=== PATIENT | female | born 1995 | race African-American/Black ===

== ENCOUNTER 2020-11-08 01:31 | Emergency (ER) | payer OTHER, SELFPAY ==
[2020-11-08 01:35] VITALS: BP 115/73; PULSE 86; RESP 16; TEMP 36.9; O2SAT 98
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
[2020-11-08 02:31] VITALS: BP 134/84; PULSE 80; RESP 16; TEMP 36.7; O2SAT 99
[2020-11-08] MEDS: ACETAMINOPHEN 500 MG TABLET 1000 MG PO (02:31)
== END 2020-11-08 02:32 | disposition home or self-care (01) ==
PROVIDERS: Emergency Provider General Practice; PCP Nurse Practitioner Family
DX: O99.891 Other specified diseases and conditions complicating pregnancy (principal); M79.604 Pain in right leg; Z3A.00 Weeks of gestation of pregnancy not specified
CPT/HCPCS: 99282; A9270

== ENCOUNTER 2020-11-11 23:43 | Emergency (ER) | payer OTHER, SELFPAY ==
--- NOTE | ~2020-11-11 | XR_ITS ---
XR chest 1V portable DATE: 11/12/2020 02:36 INDICATION: Cough for 3 days TECHNIQUE: Portable upright AP view on 11/12/2020 at 0234 hours COMPARISON: 12/02/2018 2 view chest FINDINGS: Mild upper left thoracic levoscoliosis is again noted. Normal heart size. No hilar or mediastinal enlargement. No pulmonary infiltrate or consolidation, pleural effusion or pulmonary vascular congestion or pneumo thorax is detected. IMPRESSION: No active cardiopulmonary disease Reviewed, dictated and finalized at location A.
[2020-11-11 23:50] VITALS: BP 106/68; PULSE 90; RESP 14; TEMP 36.9; O2SAT 100
[2020-11-12 02:03] VITALS: BP 105/70; PULSE 93; RESP 18; O2SAT 100
--- NOTE | 2020-11-12 02:46 | ED.GENADULT ---
HPI - General Adult General Chief complaint: Upper Respiratory Infection Stated complaint: I think I have pneumonia Time Seen by Provider: 11/12/20 02:14 History of Present Illness HPI narrative: Patient is a 5-year-old female presents emerged part with chief complaint of cough. Patient reports that her child is diagnosed with pneumonia and that she has been coughing for the last 7 days. The patient reports that she is 33 weeks and reports that she thinks she may have pneumonia or bronchitis. The patient reports has had some subjective fevers reports that she has not been tested for Covid has not previously had Covid nor has she been vaccinated. Related Data Allergies Allergy/AdvReac Type Severity Reaction Status Date / Time adhesive tape Allergy Mild RASH Verified 11/12/20 02:06 Review of Systems Review of Systems: Narrative: A 10 system review of systems was completed on the patient and is negative except for what is stated in the HPI. Nursing and ancillary documentation was reviewed. [facility] Past Medical History Medical History History of broken leg Social History Social History Smoking status: Never smoker Alcohol intake: never Substance use: never Exam Narrative: Exam Narrative: GENERAL: Well-appearing, well-nourished, and in no acute distress. HEAD: Normocephalic, atraumatic. EYES: PERRLA and EOMI. ENT: Nares clear, no rhinorrhea or epistaxis. Mucous membranes moist. NECK: Supple. CHEST: Clear to auscultation. No respiratory distress. HEART: Regular rate and rhythm. No murmur heard. Normal peripheral pulses. ABDOMEN: Soft, nontender, nondistended, normal active bowel sounds. EXTREMITIES: Normal range of motion. No edema. SKIN: Warm, dry, no rash. NEURO: No focal deficits. Alert and oriented x3. PSYCH: Normal mood and affect. Course Course Emergency Course: Chest x-ray shows no evidence of pneumonia Vital Signs Vital signs: Vital Signs Temperature 36.9 C 11/11/20 23:50 Pulse Rate 90 11/11/20 23:50 Respiratory Rate 14 11/11/20 23:50 Blood Pressure 106/68 11/11/20 23:50 Pulse Oximetry 100 11/11/20 23:50 Temperature 36.9 C 11/11/20 23:50 Pulse Rate 93 11/12/20 02:03 Respiratory Rate 18 11/12/20 02:03 Blood Pressure 105/70 11/12/20 02:03 Pulse Oximetry 100 11/12/20 02:03 Medical Decision Making Vital Signs Vital Signs: Vital Signs Temperature 36.9 C 11/11/20 23:50 Pulse Rate 90 11/11/20 23:50 Respiratory Rate 14 11/11/20 23:50 Blood Pressure 106/68 11/11/20 23:50 Pulse Oximetry 100 11/11/20 23:50 Temperature 36.9 C 11/11/20 23:50 Pulse Rate 93 11/12/20 02:03 Respiratory Rate 18 11/12/20 02:03 Blood Pressure 105/70 11/12/20 02:03 Pulse Oximetry 100 11/12/20 02:03 Discharge Plan Discharge Clinical Impression: Bronchitis Patient Disposition: Home, Self-Care Condition: Stable Instructions: Antibiotic Form, Acute Bronchitis (ED) Prescriptions: New azithromycin [Zithromax Z-Aleksandr] 250 mg tablet See Rx Instructions .ROUTE .COMPLEX Qty: 6 RF: 0 Follow-up/Referrals: Jonatan,FLAVIO Arroyo [Primary Care Provider] - Time of Disposition: 02:47
[2020-11-12 03:12] VITALS: BP 103/71; PULSE 91; RESP 18; O2SAT 100
[2020-11-12 16:16] LABS: SARS-CoV-2 RNA PCR Negative
== END 2020-11-12 03:02 | disposition home or self-care (01) ==
PROVIDERS: Emergency Provider Emergency Medicine; PCP Nurse Practitioner Family
DX: J40 Bronchitis, not specified as acute or chronic (principal); Z20.828 Contact with and (suspected) exposure to other viral communicable diseases
CPT/HCPCS: 71045; 99283; C9803; U0003; U0005

== ENCOUNTER 2020-12-24 05:30 | Observation (INO) | payer OTHER, SELFPAY ==
--- NOTE | 2020-12-24 05:30 | OBADM ---
This patient, Maggi Hernandez, admitted to the OB room Labor/Delivery/Recovery 107 for observation. Patient/family oriented to hospital policies and general routines including ID bracelet, bed and alarms, visiting hours, pain management, procedures, bathroom and other care routines, personal items, smoking policy, room service/diet, and visiting hours. Patient/Family are encouraged to report perceived risks to care and to ask questions if they do not understand what they are told or what they should do.
--- NOTE | 2020-12-27 07:10 | PM.OBTRLD ---
OB - Triage/Final Diagnosis Visit Information Date of evaluation: 12/26/20 Reason for evaluation: threatened labor Comments/Additional reasons for admission: I have assessed the risk for this patient, Maggi Hernandez, and determined that she would benefit from observation care.
== END 2020-12-24 09:15 | disposition home or self-care (01) ==
PROVIDERS: Admitting Provider Obstetrics & Gynecology; PCP Nurse Practitioner Family; Visit Provider Obstetrics & Gynecology
DX: O47.9 False labor, unspecified (principal); Z3A.00 Weeks of gestation of pregnancy not specified
CPT/HCPCS: G0378; G0379

== ENCOUNTER 2020-12-26 20:39 | Observation (INO) | payer OTHER, SELFPAY ==
[2020-12-26 21:38] VITALS: BMI 29.9
--- NOTE | 2020-12-26 21:39 | OBADM ---
This patient, Maggi Hernandez, admitted to the OB room Labor/Delivery/Recovery 105 for observation. Patient/family oriented to hospital policies and general routines including ID bracelet, bed and alarms, visiting hours, pain management, procedures, bathroom and other care routines, personal items, smoking policy, room service/diet, and visiting hours. Patient/Family are encouraged to report perceived risks to care and to ask questions if they do not understand what they are told or what they should do.
--- NOTE | 2021-01-16 20:14 | PM.OBTRLD ---
OB - Triage/Final Diagnosis Visit Information Comments/Additional reasons for admission: I have assessed the risk for this patient, Maggi Hernandez, and determined that she would benefit from observation care. Final Diagnosis (1) Vaginal discharge during in third trimester: Code(s): O26.893 - Other specified related conditions, third trimester; N89.8 - Other specified noninflammatory disorders of vagina Status: Acute
== END 2020-12-26 21:54 | disposition home or self-care (01) ==
PROVIDERS: Admitting Provider Obstetrics & Gynecology; PCP Nurse Practitioner Family; Visit Provider Obstetrics & Gynecology
DX: O26.893 Other specified pregnancy related conditions, third trimester (principal); N89.8 Other specified noninflammatory disorders of vagina; Z3A.38 38 weeks gestation of pregnancy
CPT/HCPCS: 84112; G0378; G0379

== ENCOUNTER 2020-12-28 06:55 | Inpatient (IN) | payer OTHER, SELFPAY ==
[2020-12-28] VITALS (47 sets, daily range): BP systolic 75–151; BP diastolic 39–135; PULSE 32–188; RESP 16; TEMP 36.4–36.7; O2SAT 77–100
--- NOTE | 2020-12-28 07:19 | LDADM ---
This patient, Maggi Hernandez, was admitted to Labor/Delivery/Recovery 106 on 12/28/20 at 06:55. Plans for labor, pain management and were discussed with patient. Patient/family oriented to hospital policies and general routines including ID bracelet, bed and alarms, visiting hours, pain management, procedures, bathroom and other care routines, personal items, smoking policy, room service/diet and guest tray routines, security routines, and visiting hours. Patient/Family are encouraged to report perceived risks to care and to ask questions if they do not understand what they are told or what they should do. See OBIX for further documentation.
[2020-12-28] MEDS: LACTATED RINGERS 1,000 ML 125 ML IV CONT (07:30)
[2020-12-28 07:35] LABS: Basophils Percent Auto 0.4 % (0.2-1.2); Eosinophils Absolute Auto 0.1 K/mm3 (0-0.3); Eosinophils Percent Auto 0.8 % (0-4.4); Hematocrit 32.7 % (37.0-47.0); Hemoglobin 10.5 g/dL (12.0-15.0); Lymphocytes Absolute Auto 2.16 K/mm3 (0.9-3.2); Lymphocytes Percent Auto 21.8 % (18.3-44.2); Mean Corpuscular HGB Conc 32.1 g/dl (32-36); Mean Corpuscular Hemoglobin 30.3 pg (26-34); Mean Corpuscular Volume 94.2 fl (80-100); Mean Platelet Volume 10.2 fl (7.4-10.4); Monocytes Absolute Auto 0.5 K/mm3 (0.1-0.6); Monocytes Percent Auto 5.4 % (2.6-8.5); Neutrophils Percent Auto 70.6 % (45.5-73.1); Platelet Count Result 231 k/mm3 (150-375); Red Blood Count 3.47 M/mm3 (4.2-5.4); Red Cell Distribution Width 12.6 % (11.5-14.5); White Blood Count 9.9 K/mm3 (4.5-10.0)
[2020-12-28] MEDS: ONDANSETRON INJ 4 MG/2 ML VIAL IV PUSH (12:05)
--- NOTE | 2020-12-28 15:03 | WPDOBADMIT ---
Obstetrics - Admit Note Admission Note: record reviewed. No pertinent additions to the history and/or any subsequent changes in the physical findings that are not consistent with the expected course of the were found. admitted to ld for labor, SROM large amount of clear odorless fluid, SVE 8-9/0-/-1 Additions to the history and/or subsequent changes in the physical findings follow. None.
[2020-12-28] MEDS: OXYTOCIN 30 UNITS/NS 500 ML 30 UNITS/500 ML BAG 999 UNITS IV CONT (15:45)
--- NOTE | 2020-12-28 15:52 | PM.OBPRVD ---
OB - Delivery Note Procedure Delivery date: 12/28/20 Procedure: vaginal delivery Intrapartal events: None Delivery augmentation: rupture of membranes Delivery monitor: external FHT and external uterine Route of delivery: Laceration Description: None Specimen: No Quantitative Blood Loss (ml): 65 Anesthesia type: Epidural Disposition: floor Baby Date of : 12/28/20 Time of : 15:42 Weeks of gestation at delivery: 38 gender: Male Weight (pounds): 7 Weight (ounces): 2 presentation: vertex position: Left Occiput Transverse Placenta delivery description: Spontaneous cord vessel description: 3 Vessels, Clamped/Cut and Delayed Cord Clamping score one minute: 9 score five minutes: 9 Narrative: mother and baby skin to skin i n stable condition
[2020-12-28] MEDS: OXYTOCIN 30 UNITS/NS 500 ML 30 UNITS/500 ML BAG 125 UNITS IV CONT (16:06)
--- NOTE | 2020-12-28 18:13 | PC.NURSE ---
Patient transferred to post room #283 via wheel chair. Support person present. Oriented to unit, room, information board, rooming in, admission packet and security measures. Patient verbalizes understanding.
[2020-12-28] MEDS: IBUPROFEN 600 MG TABLET PO (18:40)
[2020-12-28] MEDS: WITCH HAZEL 40 PADS 1 PAD TOPICAL (22:48)
[2020-12-28] MEDS: BENZOCAINE 20% AER SPR (*SP) 56 GM CAN 1 SPRAY TOPICAL (22:48)
[2020-12-29 04:00] VITALS: BP 106/71; PULSE 77; RESP 16; TEMP 36.2
[2020-12-29 05:08] LABS: Hematocrit 32.7 % (37.0-47.0); Hemoglobin 10.3 g/dL (12.0-15.0)
--- NOTE | 2020-12-29 07:00 | PC.NURSE ---
PT introductions made and plan of care discussed per post , pain management, breast feeding, daily care activities. PT received instructions given per shift via one to one discussion, mom baby care guide and demonstration. PT and significant other both received instructions and no barriers to learning identified at this time.
[2020-12-29] MEDS: MULTIVIT/MIN/PREN/FOL AC/IRON TABLET 1 TAB PO (08:21)
[2020-12-29] MEDS: ACETAMINOPHEN 325 MG TABLET 650 MG PO ×2 (08:21→16:02)
[2020-12-29] MEDS: DOCUSATE SODIUM 100 MG CAPSULE PO ×2 (08:21→16:04)
[2020-12-29] MEDS: IBUPROFEN 600 MG TABLET PO ×2 (08:22→16:03)
[2020-12-29] MEDS: LANOLIN (LANSINOH) 7.5 GM CREAM 1 APPLIC TOPICAL (08:23)
[2020-12-29 09:30] VITALS: BP 104/58; PULSE 83; RESP 18; TEMP 36.4; O2SAT 100
--- NOTE | 2020-12-29 18:26 | PM.OBPNVD ---
OB - PN: Subj Subjective Date/time seen: 12/29/20 18:26 Patient comments: no complaints, pain well controlled, incisional pain, tolerating diet and flatus present OB - PN: Obj Data Labs CBC & Chem 7: 12/29/20 03:53 Labs: Laboratory Results - last 24 hr 12/29/20 03:53 Hgb 10.3 L Hct 32.7 L OB - PN A/P Plan day: 1 Plan: routine care Comments: No problems, routine care Time Spent With Patient Time: Total time spent is greater than 50% in coordination of care (as documented) at patient's floor/unit and/or counseling patient: Exam Const: General: comfortable, no acute distress and alert Resp: Effort & Inspection: normal respiratory effort Auscultation: no crackles, no rales and no rhonchi Cardio: Rate: regular rate Heart sounds: no click, no murmurs and no rubs GI: Inspection: non-distended GI Palp: No Tenderness to palpation present (GI) Auscultation: normal bowel sounds Other: Incision - CDI Extrem: General: normal to inspection, no pedal edema and no calf tenderness
[2020-12-29 19:30] VITALS: BP 115/65; PULSE 76; RESP 16; TEMP 36.9; O2SAT 100
[2020-12-30] MEDS: IBUPROFEN 600 MG TABLET PO ×2 (03:16→08:52)
[2020-12-30] MEDS: ACETAMINOPHEN 325 MG TABLET 650 MG PO (03:17)
--- NOTE | 2020-12-30 07:55 | PM.OBPNVD ---
OB - PN: Subj Subjective Date/time seen: 12/30/20 07:55 Patient comments: no complaints baby status: doing well OB - PN: Obj Data Labs CBC & Chem 7: 12/29/20 03:53 OB - PN A/P Plan day: 2 Plan: routine care and discharge home (F/U in 4 weeks) Time Spent With Patient Time: Total time spent is greater than 50% in coordination of care (as documented) at patient's floor/unit and/or counseling patient: Time with patient: less than 15 minutes Review of Systems Review of Systems: All systems reviewed & are unremarkable except as noted in HPI and below Exam Narrative: Fundus firm and vaginal flow controlled. No lower ext redness, warmth, or edema. Negative homans. Const: General: comfortable Chest: Breast/axilla inspection: normal inspection of the breasts Resp: Effort & Inspection: normal respiratory effort Cardio: Rate: regular rate GI: GI Palp: Yes Soft to palpation Psych: Appearance: grossly normal Affect: normal affect Attitude: cooperative Thought content: Yes Normal thought content present Judgement: Good judgement present (Psych)
--- NOTE | 2020-12-30 07:56 | P.DS_ITS ---
DS: Admitting Diagnosis Admitting Diagnosis Labor OB - DS: Summary OB Procedures : None OB Procedures Intrapartum: Spontaneous Vag Delivery OB Procedures: : None Time Spent with Patient Time attestation: Total time spent providing and/or coordinating discharge services: Discharge Plan Discharge Attending physician on discharge: Rosa Taylor Discharging Clinician: Debra Sotelo Patient Disposition: Home, Self-Care Activity: pelvic rest Diet: as tolerated Patient Instructions: Antibiotic Form Stand Alone Forms: General Discharge Information Follow-up/Referrals: Rosa Taylor CNM [Certified Nurse Continuous Dryout Operator Helper] - Discharge Medications: Continued PNV cmb#95-ferrous fumarate-FA [] 28 mg iron- 800 mcg Tablet 1 tablet PO DAILY RF: 0 Date of admission: 12/28/20 06:55 Primary Care Provider: UNKNOWN,DOCTOR Admitting Provider: Rajiv Huynh Attending physician on admission: Rajiv Huynh Condition: Stable
[2020-12-30 08:00] VITALS: BP 112/75; PULSE 68; RESP 16; TEMP 36.3; O2SAT 98
[2020-12-30] MEDS: MULTIVIT/MIN/PREN/FOL AC/IRON TABLET 1 TAB PO (08:52)
[2020-12-31 10:05] VITALS: BP 118/72; PULSE 71; RESP 16; TEMP 37.2
[2021-01-02 09:19] LABS: Rapid Plasma Reagin Non-Reactive (NonReactive)
== END 2020-12-30 12:10 | disposition home or self-care (01) | DRG 560 ==
LOC: ANHLDR 07:12 → ANHOB2 18:24
PROVIDERS: Advanced Practice Midwife; Admitting Provider Obstetrics & Gynecology; Visit Provider Obstetrics & Gynecology
DX: O80 Encounter for full-term uncomplicated delivery (principal); Z3A.38 38 weeks gestation of pregnancy; Z37.0 Single live birth
CPT/HCPCS: 36415; 85014; 85018; 85025; 86592; 86850; 86900; 86901; A9270; J2405; J2590; J2795; J7120

== ENCOUNTER 2022-01-26 00:47 | Emergency (ER) | payer OTHER, SELFPAY ==
--- NOTE | ~2022-01-26 | XR_ITS ---
EXAMINATION: XR femur RT min 2V DATE: 01/26/2022 01:48 INDICATION: Right hip pain. Right lower limb pain. TECHNIQUE: 2 views of the right femur on 4 radiographs were obtained. COMPARISON: None. FINDINGS: There is an old healed fracture of right femoral diaphysis. There is internal fixation with antegrade intramedullary shane, 3 femoral head and neck screws, and 2 distal interlocking screws. No a cute fracture. There is mild right hip osteoarthritis. Right knee joint is normal. No knee joint effu gonzalo. There is an intrauterine device in expected position. IMPRESSION: 1. Mild right hip osteoarthritis. Reviewed, dictated and finalized at location A.
--- NOTE | ~2022-01-26 | XR_ITS ---
EXAMINATION: XR hip RT 1V w AP pelvis DATE: 01/26/2022 01:48 INDICATION: Right hip pain. TECHNIQUE: An anteroposterior view of the pelvis and 2 views of right hip were obtained. COMPARISON: None. FINDINGS: There is internal fixation of proximal right femur with antegrade intramedullary shane and 3 femoral head and neck screws. There is mild right hip osteoarthritis. There is an intrauterine device in expected position. IMPRESSION: 1. Mild right hip osteoarthritis. Reviewed, dictated and finalized at location A.
[2022-01-26 00:59] VITALS: BP 106/69; PULSE 82; RESP 16; TEMP 36.3; O2SAT 100
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
[2022-01-26] MEDS: IBUPROFEN 400 MG TABLET 800 MG PO (02:08)
[2022-01-26 02:27] VITALS: BP 118/68; PULSE 74; RESP 16; TEMP 36.8; O2SAT 100
== END 2022-01-26 02:29 | disposition home or self-care (01) ==
PROVIDERS: Emergency Provider Emergency Medicine
DX: M16.11 Unilateral primary osteoarthritis, right hip (principal)
CPT/HCPCS: 73501; 73552; 99284; A9270

== ENCOUNTER 2022-07-22 11:03 | Emergency (ER) | payer OTHER, SELFPAY ==
--- NOTE | 2022-07-22 11:09 | ED.EYEPROB ---
HPI - Eye Problem General Chief complaint: Eye Problems Stated complaint: Eyes Irritation Time Seen by Provider: 07/22/22 11:10 Source: patient Mode of arrival: ambulatory Limitations: no limitations History of Present Illness HPI Narrative: Maggi is a 27-year-old female patient presenting to the clinic today with complaints of eye irritation times 1-2 days. She reports the left eye is painful and she is concerned that she may have scratched her has something in the left eye. States that she is having light sensitivity in the left eye. Related Data Home Medications Medication Instructions Recorded Confirmed metronidazole 500 mg tablet 500 mg DIRECTED 07/22/22 07/22/22 Allergies Allergy/AdvReac Type Severity Reaction Status Date / Time adhesive tape Allergy Mild RASH Verified 11/12/20 02:06 Review of Systems Review of Systems: Pertinent positives per HPI. Patient denies any fever, chills, rash, headache, visual changes, dizziness, cough, runny nose, sore throat, shortness of breath, chest pain, palpitations, nausea, vomiting, diarrhea, constipation, abdominal pain, or any urinary issues. PMFSH Past Medical History Medical History History of broken leg Family History Family History Sibling Asthma Daughter Eczema Carrier of galactosemia Social History Social History Smoking status: Never smoker Alcohol intake: never Substance use: never Gender identity (if verbalized by the patient): Female Spiritual care concerns: No Comments At the time of my signature, I reviewed and agree with the nursing past medical, surgical, social, and family history. There is no relevant family history pertinent to the patient complaint. Exam Narrative: General: Well-developed, well nourished, in no apparent distress Head: Normocephalic, atraumatic Eyes: Pupils equally round and reactive to light bilaterally, EOM intact, sclera and conjunctive injected bilaterally, yellow mucopurulent discharge, wood lamp shows a corneal abrasion over the left visual field lids normal Ears: TMs intact and clear, ear canals clear, no drainage, grossly hearing normal. Nose: Nares patent, no discharge, no inflammation, no sinus tenderness. Mouth: Oropharynx without lesions or masses, good dentition, MMM. Neck: Supple, trachea midline, no enlargement of anterior or posterior cervical nodes, no thyroid masses or goiter palpable. Cardio: Regular rate and rhythm, s1 and s2 normal, no murmur appreciated. Resp: Clear to auscultation bilaterally anteriorly and posteriorly, no rhonchi, rales, wheezing or rubs Course Course Emergency Course: Portions of this record may have been created with voice recognition software. Level of Care: Express Care Visit Vital Signs Vital signs: Vital Signs Temperature 37.2 C 07/22/22 11:14 Pulse Rate 77 07/22/22 11:14 Respiratory Rate 16 07/22/22 11:14 Blood Pressure 107/64 07/22/22 11:14 Pulse Oximetry 99 07/22/22 11:14 Oxygen Delivery Room Air 07/22/22 11:14 Temperature 37.2 C 07/22/22 11:14 Pulse Rate 77 07/22/22 11:14 Respiratory Rate 16 07/22/22 11:14 Blood Pressure 107/64 07/22/22 11:14 Pulse Oximetry 99 07/22/22 11:14 Oxygen Delivery Room Air 07/22/22 11:14 Vital signs reviewed MDM - Eye Problem MDM Narrative Medical decision making narrative: At the time of visit patient is resting comfortably on the exam table. Instill ofloxacin eyedrops as prescribed. E-Mycin ointment ordered for the left eye at nighttime. Supportive measures were discussed with the patient she voiced understanding discharge instructions agrees to treatment plan. Differential Diagnosis Differential diagnosis: Likely corneal abrasion, conjunctivitis and corneal ulcer Discharge Plan
[2022-07-22 11:14] VITALS: BP 107/64; PULSE 77; RESP 16; TEMP 37.2; O2SAT 99
== END 2022-07-22 11:43 | disposition home or self-care (01) ==
PROVIDERS: Emergency Provider Nurse Practitioner Family
DX: H10.9 Unspecified conjunctivitis (principal); S05.02XA Injury of conjunctiva and corneal abrasion without foreign body, left eye, initial encounter; W45.8XXA Other foreign body or object entering through skin, initial encounter
CPT/HCPCS: 99213; A9270; G0463

== ENCOUNTER 2022-09-24 16:25 | Emergency (ER) | payer OTHER, SELFPAY ==
--- NOTE | 2022-09-24 16:35 | ED.EYEPROB ---
HPI - Eye Problem General Chief complaint: Eye Problems Stated complaint: Both Eyes Irritation Time Seen by Provider: 09/24/22 16:35 Source: patient Mode of arrival: ambulatory Limitations: no limitations History of Present Illness HPI Narrative: Patient is a 27-year-old female that presents with left eye irritation. Patient states she slept in her contacts and was only able to get right contact out of eye. Thinks left is still stuck in her eye. Denies any changes in vision or severe pain. Does report sensitivity to light. Related Data Home Medications Medication Instructions Recorded Confirmed No Home Medications 09/24/22 09/24/22 Allergies Allergy/AdvReac Type Severity Reaction Status Date / Time adhesive tape Allergy Mild RASH Verified 09/24/22 16:41 Review of Systems Review of Systems: All systems reviewed & are unremarkable except as noted in HPI and below Constitutional: Constitutional: Denies body ache(s), Denies fever(s), Denies headache(s), Denies malaise and Denies weakness Eyes: Eyes: Denies blurry vision, Denies eye discharge, Reports irritation, Denies itchy eyes, Denies loss of vision, Denies eye pain and Reports photophobia ENT: Denies otalgia, Denies headache(s), Denies nasal discharge, Denies sinus pain and Denies sore throat Cardiovascular: Cardiovascular: Denies chest pain, Denies irregular heart rhythm and Denies dyspnea Respiratory: Respiratory: Denies dyspnea Gastrointestinal: Gastrointestinal: Denies abdominal pain, Denies diarrhea, Denies nausea and Denies vomiting Musculoskeletal: Musculoskeletal: Denies back pain, Denies myalgias and Denies arthralgias Integumentary/Breasts: Skin/Breast: Denies pruritus and Denies rash Neurologic: Denies headache(s), Denies loss of vision and Denies weakness Psychiatric: Psychiatric: Reports no additional psychiatric complaints Allergic/Immunologic: Allergic/Immunologic: Reports itchy eyes PMFSH Past Medical History Medical History History of broken leg Family History Family History Sibling Asthma Daughter Eczema Carrier of galactosemia Social History Social History Smoking status: Never smoker Alcohol intake: never Substance use: never Gender identity (if verbalized by the patient): Female Spiritual care concerns: No Comments At time of signature, agree with nursing past medical, surgical, social and family history. There is no relevant family history pertinent to the presenting complaint. Exam Const: General: cooperative, healthy appearing, comfortable, no acute distress and well nourished Nutritional Appearance: well nourished Orientation/consciousness: patient oriented x3 Limitations: no limitations HENMT: Head: normal to inspection, normocephalic and atraumatic Ears: external ears normal Face/Nose/Sinus: Normal external nose present, normal facial exam and face symmetric Face and sinus: normal facial exam and face symmetric Mouth: Yes lip normal Eyes: General: appearance normal, both eyes and all related structures Visual Restrepo: normal visual restrepo by confrontation Alignment and Position: alignment normal and position normal Periorbital: periorbital findings normal Eyelids: eyelids normal Conjunctivae: conjunctivae normal Sclera: scleral abnormality left scleral injection diffuse Cornea: corneas normal and fluorescein used Pupils: Equal, round and reactive pupils present EOM: EOMs intact bilaterally Direct Ophthalmoscopy: photophobia Other: No hyphema, no foreign body under the lids. Neck: Neck: normal visual inspection, full ROM, no lymphadenopathy and no meningeal signs Chest: Chest palpation & inspection: normal inspection of the chest Resp: Effort & Inspection: normal respiratory effort and able to speak
[2022-09-24 16:40] VITALS: BP 122/67; PULSE 75; RESP 16; TEMP 36.6; O2SAT 100
[2022-09-24 16:42] VITALS: BP 122/67; PULSE 75; RESP 16; TEMP 36.6; O2SAT 100
== END 2022-09-24 17:33 | disposition home or self-care (01) ==
PROVIDERS: Emergency Provider Nurse Practitioner Family
DX: H57.13 Ocular pain, bilateral (principal)
CPT/HCPCS: 99213; A9270; G0463